=== PATIENT | female | born 1960 | race Caucasian/White ===

== ENCOUNTER 2018-05-18 13:31 | Emergency (ER) | payer SELFPAY ==
[2018-05-18] MEDS: ONDANSETRON 4 MG INJ IV (14:05)
[2018-05-18] MEDS: MECLIZINE 12.5 MG TAB PO ×2 (14:05→17:10)
[2018-05-18] MEDS: SOD CHLORIDE 0.9% 1,000 ML IV (14:11)
[2018-05-18] MEDS: METOCLOPRAMIDE 10 MG INJ IV (14:40)
[2018-05-18] MEDS: DIAZEPAM 5 MG/ML SYG IV ×2 (14:40→17:10)
== END 2018-05-18 19:08 | disposition home or self-care (01) ==
LOC: E/R 19:08
DX: R42 Dizziness and giddiness (principal)
CPT/HCPCS: 70450; 96374; 96375; 96376; 99285-25